=== PATIENT | female | born 1985 | race Caucasian/White ===

== ENCOUNTER 2016-11-25 23:41 | Emergency (ER) | payer OTHER ==
[2016-11-26 01:53] VITALS: BP 149/96
== END 2016-11-26 01:53 | disposition left against medical advice (07) ==
LOC: ED 23:41
DX: O48.0 Post-term pregnancy (principal); R03.0 Elevated blood-pressure reading, without diagnosis of hypertension; R60.9 Edema, unspecified; R51 Headache